=== PATIENT | female | born 1995 | race African-American/Black ===

== ENCOUNTER → 2020-11-15 12:40 | Outpatient (BNVA) | payer OTHER, SELFPAY | PROVIDERS: PCP Internal Medicine; Visit Provider Physician Assistant | DX: E66.01 Morbid (severe) obesity due to excess calories (principal); J45.909 Unspecified asthma, uncomplicated; K21.9 Gastro-esophageal reflux disease without esophagitis | CPT/HCPCS: 99202 ==

== ENCOUNTER → 2020-11-25 10:06 | Outpatient (BNVA) | payer OTHER, SELFPAY | PROVIDERS: PCP Internal Medicine; Visit Provider Physician Assistant ==

== ENCOUNTER 2020-12-04 08:06 | Outpatient (REF) | payer OTHER, SELFPAY ==
--- NOTE | ~2020-12-04 | FL_ITS ---
EXAMINATION: FL XR GI SERIES CLINICAL INFORMATION: Morbid obesity. COMPARISON: None TECHNIQUE: Air contrast upper GI examination. FINDINGS: There is normal elevation of the soft palate while saying candy. There is normal apposition of the focal cords when saying E. Patient swallowed a combination of thin and thick barium after CO2 crystal ingestion. There is no evidence of nasopharyngeal reflux or tracheal aspiration. No Zenker's diverticulum was appreciated. The esophagus appeared unremarkable without stricture, ulceration, or hiatal hernia. No gastroesophageal reflux was identified including with water siphon test. There is normal esophageal motility. The stomach demonstrates normal distensibility without abnormal mass or ulceration. There is no delay in gastric emptying. The duodenal bulb and sweep appeared unremarkable. FLUOROSCOPY TIME: 1.3 minutes. DOSE AREA PRODUCT: 20.597 uGy-m2 (microgray-meter squared). FL/FL upper GI series IMPRESSION: Normal air contrast upper GI examination.
--- NOTE | ~2020-12-04 | US_ITS ---
EXAMINATION: US COMPLETE ABDOMEN WITH LIVER ELASTOGRAPHY CLINICAL INFORMATION: Obesity. COMPARISON: None. TECHNIQUE: Real-time imaging of the abdominal viscera. Noninvasive ultrasound liver fibrosis assessment is performed using Mara ElastPQ point quantification shear wave elastography (pSWE) with a C5-2 MHz transducer. Multiple elastography samples are obtained. FINDINGS: PANCREAS: Normal. The visualized pancreatic head and body are normal in appearance. The remainder of the pancreas is obscured from visualization by the overlying bowel gas. ABDOMINAL AORTA: The proximal, middle, and distal aortic segments are normal in caliber. INFERIOR VENA CAVA: Visualized portions are normal. LIVER: Mild diffuse increased echogenicity. No focal lesion or intrahepatic biliary duct dilatation. The right lobe measures 17.3 cm in length. The left lobe measures 13.4 cm in length. Portal flow is hepatopedal. Shear wave liver elastography median stiffness is 1.26 m/s (reference: normal median stiffness is 1.3 m/s or less). IQR/median stiffness to assess sampling precision is 0.13 (reference: good quality data set is IQR/median stiffness of 0.15 or less). GALLBLADDER: Normal. The gallbladder is physiologically distended without evidence of stones, sludge, polyps, wall thickening or pericholecystic fluid. COMMON BILE DUCT: Normal in caliber measuring 0.12 cm in diameter. RIGHT KIDNEY: Normal. No hydronephrosis. No renal calculi or focal parenchymal lesions. The kidney measures 11.6 cm in maximum dimension. LEFT KIDNEY: Normal. No hydronephrosis. No renal calculi or focal parenchymal lesions. The kidney measures 10.1 cm in maximum dimension. SPLEEN: Normal. The spleen measures 9 cm in maximum dimension. FREE FLUID: None. US/US abdomen comp w elastography IMPRESSION: 1. Mild diffuse increased hepatic echogenicity correlating with mild hepatic steatosis. No focal liver lesion or biliary duct dilatation. 2. Liver elastography: Liver stiffness median value 1.26. This correlates with a high probability of being normal. REFERENCE: Society of Radiologists in Ultrasound Liver Stiffness Thresholds (2019): LIVER STIFFNESS THRESHOLDS: *Liver Stiffness equal or less than 1.3 m/s: High probability of being normal. *Liver Stiffness less than 1.7 m/s: In the absence of other known clinical signs, rules out compensated advanced chronic liver disease. *Liver Stiffness 1.7-2.1 m/s: Suggestive of compensated advanced chronic liver disease but need further test for confirmation. *Liver Stiffness over 2.1 m/s: Rules in compensated advanced chronic liver disease. *Liver Stiffness over 2.4 m/s: Suggestive of clinically significant portal hypertension. QUALITY OF DATA SET: *IQR/Median value equal or less than 0.15 implies a quality data set. *IQR/Median value over 0.15 implies a poor quality data set. SIGNIFICANT CHANGE FROM PRIOR EXAM: Significant change if liver stiffness measurement is 10% or greater from prior exam. OTHER CONSIDERATIONS: The stage of liver fibrosis may be overestimated in the setting of acute hepatitis, liver inflammation, elevated liver function tests, hepatic vascular congestion, obstructive cholestasis, non-fasting state, and infiltrative diseases such as amyloidosis and lymphoma. In some patients with NAFLD, the liver stiffness thresholds for compensated advanced chronic liver disease may be lower. In causes other than viral hepatitis and NAFLD, liver stiffness thresholds are not well established.
--- NOTE | ~2020-12-04 | XR_ITS ---
EXAMINATION: XR CHEST CLINICAL INFORMATION: Morbid obesity COMPARISON: None TECHNIQUE: 2 views of the chest were obtained. FINDINGS: No significant abnormality is noted involving the heart, lungs, mediastinum, bony thorax or soft tissues. XR/XR chest 2V IMPRESSION: No acute disease.
[2020-12-04 10:09] LABS: MANUAL DIFF FLAG NO
[2020-12-04 10:16] LABS: Basophils Percent Auto 0.4 % (0-2); Eosinophils Absolute Auto 0.1 X10*3/uL (0.0-0.4); Eosinophils Percent Auto 1.5 % (0-4); Hematocrit 39.7 % (37-47); Hemoglobin 13.1 g/dl (12.0-16.0); Imm Gran Abs Auto 0.01 X10*3/uL (0.00-0.03); Imm Gran Pct Auto 0.2 % (0.0-0.4); Lymphocytes Percent Auto 38.5 % (20-40); Mean Corpuscular Hemoglobin 26.5 pg (27.0-33.0); Mean Corpuscular Volume 80.2 fL (80-98); Mean Platelet Volume 11.3 fL (9.4-12.3); Monocytes Absolute Auto 0.4 X10*3/uL (0.1-1.2); Monocytes Percent Auto 6.6 % (2-11); Neutrophils Absolute Auto 2.8 X10*3/uL (2.0-8.3); Neutrophils Percent Auto 52.8 % (45-73); Platelet Count 253 X10*3/uL (160-400); Red Blood Count 4.95 X10*6/uL (4.20-5.50); Red Cell Distribution Width 13.9 % (11.0-16.0); White Blood Count 5.3 X10*3/uL (4.8-10.8)
[2020-12-04 10:23] LABS: Estimated Average Glucose 100 mg/dL; Hemoglobin A1c % 5.1 %
[2020-12-04 10:47] LABS: Alanine Aminotransferase 17 U/L (0-31); Albumin Level 4.3 g/dL (3.5-5.0); Alkaline Phosphatase 74 U/L (39-117); Anion Gap 14 (12-20); Aspartate Amino Transferase 15 U/L (5-31); Bilirubin Total 0.5 mg/dL (0.0-1.0); C Reactive Protein 2.27 mg/dL (< or = 0.50); Carbon Dioxide 25 mmol/L (22-29); Chloride 105 mmol/L (96-108); Cholesterol 155 mg/dL; Estimated Glomerular Filt Rate > 60; Glucose Random 97 mg/dL (60-115); HDL Cholesterol 71 mg/dL; LDL Cholesterol Calculated 70 mg/dl; Potassium 3.9 mmol/L (3.3-5.1); Sodium 140 mmol/L (135-145); Total Protein 7.4 g/dL (6.5-8.0); Triglycerides 72 mg/dL
[2020-12-04 10:48] LABS: Blood Urea Nitrogen 17 mg/dL (9-16); Calcium 9.1 mg/dL (8.4-10.2)
[2020-12-04 10:59] LABS: Ferritin 25 ng/mL (10-122); TSH reflex Free T4 1.12 uIU/mL (0.32-4.0); Vitamin D 25-OH Total 8.9 ng/mL (>30)
[2020-12-05 04:48] LABS: Folate 11.3 ng/mL (> or = 4.0); Vitamin B12 424 pg/mL (200-900)
[2020-12-05 06:12] LABS: Insulin Level Total 14.1 uIU/mL
[2020-12-05 11:26] LABS: Calcium (PTHI) 9.3 mg/dL (8.6-10.2); PTHI 69 pg/mL (14-64)
[2020-12-06 07:51] LABS: Zinc 86 mcg/dL (60-130)
[2020-12-07 13:06] LABS: Vitamin B1 10 nmol/L (8-30)
[2020-12-07 18:17] LABS: Vitamin A 43 mcg/dL (38-98)
== END 2020-12-04 08:07 | disposition home or self-care (01) ==
LOC: HO.US 08:06
PROVIDERS: Physician Assistant; PCP Internal Medicine; Visit Provider Surgery
DX: Z01.818 Encounter for other preprocedural examination (principal); E66.01 Morbid (severe) obesity due to excess calories; K21.9 Gastro-esophageal reflux disease without esophagitis
CPT/HCPCS: 36415; 71046; 74240; 76705; 76981; 80053; 80061; 82306; 82607; 82728; 82746; 83036; 83525; 83970; 84425; 84443; 84590; 84630; 85025; 86140

== ENCOUNTER → 2020-12-06 08:04 | Outpatient (BNVA) | payer OTHER, SELFPAY | PROVIDERS: PCP Internal Medicine; Visit Provider Surgery ==

== ENCOUNTER → 2020-12-16 10:01 | Outpatient (BNVA) | payer OTHER, SELFPAY | PROVIDERS: PCP Internal Medicine; Visit Provider Physician Assistant ==

== ENCOUNTER → 2020-12-17 08:10 | Outpatient (BNVA) | payer OTHER, SELFPAY | PROVIDERS: PCP Internal Medicine; Visit Provider Dietitian, Registered | DX: E66.01 Morbid (severe) obesity due to excess calories (principal); Z68.42 Body mass index [BMI] 45.0-49.9, adult | CPT/HCPCS: 97802 ==

== ENCOUNTER 2020-12-30 10:08 | Outpatient (REF) | payer OTHER, SELFPAY ==
[2020-12-31 15:17] LABS: H Pylori Breath Test NOT DETECTED (NOT DETECTED)
== END 2020-12-30 10:09 | disposition home or self-care (01) ==
LOC: HO.LNP 10:08
PROVIDERS: PCP Internal Medicine; Visit Provider Surgery
DX: Z11.0 Encounter for screening for intestinal infectious diseases (principal)
CPT/HCPCS: 83013; 99211

== ENCOUNTER → 2021-01-09 08:08 | Outpatient (BNVA) | payer OTHER, SELFPAY | PROVIDERS: PCP Internal Medicine; Visit Provider Dietitian, Registered | DX: E66.01 Morbid (severe) obesity due to excess calories (principal) | CPT/HCPCS: 97803 ==

== ENCOUNTER → 2021-01-23 10:14 | Outpatient (BNVA) | payer OTHER, SELFPAY | PROVIDERS: PCP Internal Medicine; Visit Provider Physician Assistant ==

== ENCOUNTER → 2021-01-28 08:59 | Outpatient (BNVA) | payer OTHER, SELFPAY | PROVIDERS: PCP Internal Medicine; Referring Provider Internal Medicine; Visit Provider Physician Assistant ==

== ENCOUNTER 2021-07-15 16:20 | Emergency (ER) | payer OTHER, SELFPAY ==
--- NOTE | ~2021-07-15 | CT_ITS ---
EXAMINATION: CT HEAD WITHOUT CONTRAST CLINICAL INFORMATION: sharp headaches, difficulty walking COMPARISON: None TECHNIQUE: Contiguous axial imaging was performed from the skull base to vertex without intravenous administration of contrast. This CT examination was performed using dose optimization techniques as appropriate, variously including the following: *Automated exposure control *Adjustment of mA and/or kV according to patient size (this includes techniques or standardized protocols for targeted exams where dose is matched to indication/reason for exam; i.e. extremities or head) *Use of iterative reconstruction technique DLP: 844 mGy-cm FINDINGS: There is no evidence of acute intracranial hemorrhage or territorial infarction. No abnormal mass effect or midline shift is seen. Narayanan to white matter differentiation is well preserved. No extra-axial fluid collections are identified. The ventricles are normal in size. There is no abnormal attenuation within the brain parenchyma. The osseous structures and soft tissues are normal. Mild mucosal thickening within the right and left maxillary sinuses. Mastoid air cells are clear. CT/CT head/brain wo con IMPRESSION: No acute intracranial pathology.
[2021-07-15 16:43] VITALS: BP 148/92; PULSE 83; RESP 18; TEMP 36.7; O2SAT 98; BMI 48.8
--- NOTE | 2021-07-15 17:47 | ED_ITS ---
HPI - Headache General Chief Complaint: Headache Stated Complaint: sharp head pain Time Seen by Provider: 07/15/21 17:19 Source: patient Mode of arrival: ambulatory Limitations: no limitations History of Present Illness HPI Narrative: 26 y/o female with history of asthma, GERD, depression, seasonal allergies who presents to the ER with 5 days of intermittent, sharp headaches. She denies a history of migranes and she has never had headaches like this in the past. She states they come and go and are mostly frontal. They are sharp and debilitating when they happen. The pain makes it hard for her to walk and she g ets nauseous. She reports photosensitivity when the headache is present. No neck pain or fevers. No trauma. She also reports her asthma has been acting up along with bilateral ear pains. No hearing loss, dizziness, lightheadedness, nasal congestion. MD elicited complaint: headache Onset (ago): day(s) (5) Onset description: suddenly Location: frontal Severity: severe Quality & Timing: throbbing Exacerbating factors: none Relieving factors: other (Excedrin migraine & Tylenol) Associated symptoms: nausea, photophobia and sensitivity to sound Treatments prior to arrival: none Related Data Home Medications Medication Instructions Recorded Confirmed albuterol sulfate 90 mcg/actuation 1 inh INHALATION Q4-6H PRN 11/15/20 12/06/20 breath activated powder inhaler,sensor acetaminophen 325 mg tablet mg PO 12/06/20 12/06/20 Previous Rx's Medication Instructions Recorded cholecalciferol (vitamin D3) 125 125 mcg PO DAILY #30 cap 12/06/20 mcg (5,000 unit) capsule amoxicillin 875 mg-potassium 1 tab PO BID #14 tab 07/15/21 clavulanate 125 mg tablet (Augmentin) mefltuxvvz-dwzdhmobvytoy-ibdlctal 1 cap PO Q6H PRN #10 cap 07/15/21 50 mg-300 mg-40 mg capsule (Fioricet) Allergies Allergy/AdvReac Type Severity Reaction Status Date / Time Seasonal Allergies Allergy Severe Anaphylaxis Verified 12/06/20 13:31 Review of Systems Review of Systems: Constitutional: No Fever, No Chills ENT/Mouth: No sore throat, No Rhinorrhea, No Swallowing Difficulty, +Ear pain Eyes: No Eye Pain, No Swelling, No Redness, No vision changes Cardiovascular: No Chest Pain, No SOB, No Orthopnea, No Edema Respiratory: No Cough, No Sputum, No Wheezing, No dyspnea Gastrointestinal: + Nausea, No Vomiting, No Diarrhea, No abdominal Pain Genitourinary: No Dysuria, No Urinary Frequency, No Hematuria Musculoskeletal: No joint pain, No Myalgias Skin: No Skin Lesions, No rash Neuro: No Weakness, No Numbness, No Dizziness, + Headache Heme/Lymph: No Bruising, No Lymphadenopathy PMFSH Past Medical History Medical History (Updated 07/15/21 @ 18:17 by MELVI Wise) Back pain Surgical History (Updated 11/15/20 @ 12:58 by Joselito Aldana [facility]) Hx of section Family History Family History Mother No problems noted. Father No problems noted. Sister No problems noted. Sister No problems noted. Brother No problems noted. Brother No problems noted. Brother No problems noted. Brother No problems noted. Son Heart murmur Daughter No problems noted. Daughter No problems noted. Social History Social History (Updated 12/06/20 @ 08:25 by Joselito Aldana [facility]) Alcohol intake: current Alcohol intake frequency: a few times a week Advance Directives: No Advance Directives Information Provided: No Physical Exam Vital Signs: Vital Signs: Last Vital Signs Temp 98.1 F 07/15/21 16:43 Pulse 83 07/15/21 16:43 Resp 18 07/15/21 16:43 BP 148/92 H 07/15/21 16:43 Pulse Ox 98 07/15/21 16:43 Body Mass Index 48.8 Appearance: Alert. Oriented X3. No acute distress. Eyes: Pupils equal, round and reactive to light. ENT: Pharynx normal. Effusions present behind bilateral TM's, no erythema or bulging. Neck: Normal inspection. Neck supple. CVS: Normal heart rate and rhythm. Pulses normal. Respiratory: No respiratory distress. Breath sounds normal. Abdomen: Soft and nontender. +BS x4 Skin: Skin warm and dry. Normal skin color. Normal skin turgor. No rashes. Extremities: No lower extremity edema. Neuro: Oriented X 3. No motor deficit. No sensory deficit. Course Course Course Narrative: 26 y/o female presenting with intermittent frontal headaches x5 days. Exam with fluid behind bilateral TMs without erythema or bulging. VS are normal. Given her report of difficulty walking and severe pain without a history, will get CT head. Will medicate w/ Fioricet and reassess. Reevaluation(s) Reevaluation #1: Headache improved. COVID negative. CT head normal. She is feeling better. Will plan to d/c with Fioricet and course of empiric abx. She is stable for d/c home and outpatient follow up. MDM - Headache Lab Data Labs: Lab Results 07/15/21 07/15/21 Range/Units 17:50 17:50 Urine Test NEGATIVE (NEGATIVE) COVID-19 (ANNA) Negative (Negative) COVID-19 Clin Com See Note Discharge Plan Discharge Clinical Impression: Headache Patient Disposition: Home, Self-Care Instructions: Acute Headache (ED) Additional Instructions: Your COVID test was negative. Your head CT was normal. Take the prescribed medication as needed for headache. You can also take ibuprofen 600-800 mg every 6-8 hours. Take the prescribed antibiotic as directed. Follow up with your doctor in 1 week. If you develop new or worsening symptoms call 911 or come back to the ER for further evaluation. Prescriptions: New frmwlaqtsp-yifazxgbtdncl-tkcr [Fioricet] 50-300-40 mg capsule 1 cap PO Q6H PRN (Reason: pain) Qty: 10 RF: 0 amoxicillin-pot clavulanate [Augmentin] 875-125 mg tablet 1 tab PO BID Qty: 14 RF: 0 No Action acetaminophen 325 mg tablet PO RF: 0 cholecalciferol (vitamin D3) 125 mcg (5,000 unit) capsule 125 mcg PO DAILY Qty: 30 RF: 2 albuterol sulfate 90 mcg/actuation aero powdr breath act w/sensor 1 inh inhalation Q4-6H PRNRF: 0 Stand Alone Forms: Work/School Release
[2021-07-15] MEDS: Butalb/Acetamin/Caff 50/325/40 TABLET 1 TAB PO (17:58)
[2021-07-15 18:06] LABS: UPreg QC Valid YES; Urine Pregnancy NEGATIVE (NEGATIVE)
[2021-07-15 18:17] LABS: COVID-19 Test Negative (Negative); IDNOW Serial# 9DD0AD1C
== END 2021-07-15 19:22 | disposition home or self-care (01) ==
PROVIDERS: Physician Assistant; Emergency Provider Emergency Medicine
DX: R51.9 Headache, unspecified (principal); Z20.822 Contact with and (suspected) exposure to COVID-19; Z79.899 Other long term (current) drug therapy
CPT/HCPCS: 36415; 70450; 81025; 87635; 99284

== ENCOUNTER 2021-08-06 17:20 | Emergency (ER) | payer OTHER, SELFPAY ==
[2021-08-06 17:56] VITALS: BP 153/88; PULSE 82; RESP 17; TEMP 36.7; O2SAT 97; BMI 46.8
--- NOTE | 2021-08-06 21:00 | ED.SKABFB ---
HPI - Skin/Abscess/Foreign Bdy General Chief complaint: Skin/Abscess/Foreign Body Stated complaint: body rash Time Seen by Provider: 08/06/21 20:17 Source: patient Mode of arrival: ambulatory Limitations: no limitations History of Present Illness HPI narrative: 26 yo female here with itching rash to buttocks with waking. No pain or burning. Used a triamcinolone topical cream she had left over from previous contact dermatitis with improvement. She has had intermittent idopathic contact dermatitis seen by a surplus property disposal agent/landscape photographer. she also switched her laundry detergent recently and thinks may be contributing to her symptoms. She also used a new pad when she had her period last week so this may also be causing her rash. No recent antibiotic patient is requesting STD testing and she has a new partner. She denies any vaginal discharge, urinary symptoms, vaginal lesions or bumps. Related Data Home Medications Medication Instructions Recorded Confirmed albuterol sulfate 90 mcg/actuation 1 inh INHALATION Q4-6H PRN 11/15/20 12/06/20 breath activated powder inhaler,sensor acetaminophen 325 mg tablet mg PO 12/06/20 12/06/20 Previous Rx's Medication Instructions Recorded cholecalciferol (vitamin D3) 125 125 mcg PO DAILY #30 cap 12/06/20 mcg (5,000 unit) capsule amoxicillin 875 mg-potassium 1 tab PO BID #14 tab 07/15/21 clavulanate 125 mg tablet (Augmentin) wwrcktjgru-hdqehooehyjpz-ivsjbdjx 1 cap PO Q6H PRN #10 cap 07/15/21 50 mg-300 mg-40 mg capsule (Fioricet) triamcinolone acetonide 0.025 % 1 appl TOPICAL BID PRN #15 g 08/06/21 topical cream Allergies Allergy/AdvReac Type Severity Reaction Status Date / Time Seasonal Allergies Allergy Severe Anaphylaxis Verified 08/06/21 17:56 Review of Systems Review of Systems: Yes all other systems are reviewed and are negative Constitutional: Constitutional: Reports no additional constitutional complaints, Denies body ache(s), Denies chills, Denies fever(s), Denies headache(s) and Denies weakness Eyes: Eyes: Reports no additional eye complaints and Denies change in vision ENT: Reports system reviewed and no additional complaints, except as documented, Denies dizziness, Denies headache(s), Denies nasal congestion, Denies nasal discharge and Denies neck pain Cardiovascular: Cardiovascular: Reports no additional cardiovascular complaints, Denies chest pain, Denies leg edema and Denies dyspnea Respiratory: Respiratory: Reports no additional respiratory complaints, Denies cough and Denies dyspnea Gastrointestinal: Gastrointestinal: Reports no additional gastrointestinal complaints, Denies abdominal pain, Denies diarrhea, Denies nausea and Denies vomiting Genitourinary: Genitourinary: Reports no additional female genitourinary complaints and Denies urinary incontinence Musculoskeletal: Musculoskeletal: Reports no additional musculoskeletal complaints, Denies back pain, Denies arthralgias, Denies joint swelling, Denies neck pain, Denies numbness and Denies tingling Integumentary/Breasts: Skin/Breast: Reports system reviewed and no additional complaints, except as docu and Reports rash Neurologic: Reports system reviewed and no additional complaints, except as documented, Denies Abnormal speech present, Denies dizziness, Denies headache(s), Denies numbness, Denies tingling and Denies weakness PMFSH Past Medical History Attestation statement: The following information was validated with the patient. Source: old records reviewed and nursing notes reviewed Medical History Back pain Surgical History Hx of section Family History Family History Mother No problems noted. Father No problems noted. Sister No problems noted. Sister No problems noted. Brother No problems noted. Brother No problems noted. Brother No problems noted. Brother No problems noted. Son Heart murmur Daughter No problems noted. Daughter No problems noted. Social History Social History Alcohol intake: current Alcohol intake frequency: a few times a week Advance Directives: No Advance Directives Information Provided: Yes Physical Exam Vital Signs: Vital Signs: Last Vital Signs Temp 98.0 F 08/06/21 17:56 Pulse 82 08/06/21 17:56 Resp 17 08/06/21 17:56 BP 153/88 H 08/06/21 17:56 Pulse Ox 97 08/06/21 17:56 BMI result Body Mass Index 46.8 Const: General: cooperative, healthy appearing, comfortable and no acute distress Orientation/consciousness: patient oriented x3 Limitations: no limitations HENMT: Head: Yes normal to inspection Ears: hearing grossly normal bilaterally General nose exam: Normal external nose present Face and sinus: Yes normal facial exam Mouth: Normal oral and palatal mucosa present Throat: Yes posterior oropharynx normal Eyes: General: appearance normal, both eyes and all related structures Pupils: Equal, round and reactive pupils present Neck: Neck: Yes normal visual inspection Chest: Chest palpation & inspection: normal inspection of the chest Resp: Effort & Inspection: normal respiratory effort Auscultation: clear to auscultation bilaterally Cardio: Rate: regular rate Rhythm: regular rhythm Peripheral pulses: Peripheral pulses 2+ throughout GI: Inspection: Yes normal to inspection Palpation (GI): Soft to palpation and nontender Auscultation: normal bowel sounds Back/Spine/Pelvis: Thoracic/Lumbar Spine: thoracic and lumbar spine normal to inspection Skin: Other: the bilateral buttocks there is some erythema and several urticarial lesions noted. There is no rash noted over the perineum or over the vaginal area. For also several lesions on the anterior bilateral thighs. They are blanchable General skin exam: no rashes or lesions noted Neuro: General: patient oriented x3, no focal motor deficits and normal sensation to monofilament Cranial nerves: Yes Equal, round and reactive pupils present Cognition (Neuro): normal cognition Speech: No Abnormal speech present Gait exam (Neuro): Normal gait present Motor exam (neuro): 5/5 motor strength present throughout Extrem: General: Yes normal to inspection Course Course Course Narrative: Exam is consistent with contact dermatitis in the buttocks. There is also several lesions over the anterior thighs. This may be from patient changing her laundry detergent or using new feminine lb. There is no airway involvement or angioedema. Will prescribe topical steroids which the patient can use at home. Also requesting STD testing and she has a new sexual partner. She has no symptoms. We sent testing for gonorrhea, chlamydia, BV panel. Patient will defer treatment until her results are back. Reviewed worrisome signs and symptoms of when to return him. Comfortable discharge home. MDM - Skin/Abscess/Foreign Bdy Medical Records Attestation: I reviewed the patient's medical records. Lab Data Attestation: I reviewed the patient's lab results. Discharge Plan Discharge Clinical Impression: Dermatitis Patient Disposition: Home, Self-Care Instructions: Dermatitis (ED) Additional Instructions: We will call you tomorrow if your test results are positive switch to tide Free and Clear laundry detergent only use unscented pads Prescriptions: New triamcinolone acetonide 0.025 % cream 1 appl topical BID PRN (Reason: itching) Qty: 15 RF: 0 No Action verfrghqtb-darbwiuofnngq-ewht [Fioricet] 50-300-40 mg capsule 1 cap PO Q6H PRN (Reason: pain) Qty: 10 RF: 0 amoxicillin-pot clavulanate [Augmentin] 875-125 mg tablet 1 tab PO BID Qty: 14 RF: 0 acetaminophen 325 mg tablet PO RF: 0 cholecalciferol (vitamin D3) 125 mcg (5,000 unit) capsule 125 mcg PO DAILY Qty: 30 RF: 2 albuterol sulfate 90 mcg/actuation aero powdr breath act w/sensor 1 inh inhalation Q4-6H PRNRF: 0 Referrals: Jesus Bedolla MD [Primary Care Provider] - 2 days
[2021-08-07 06:38] LABS: CT PCR NOT DETECTED (Not Detect.); NG PCR NOT DETECTED (Not Detect.)
[2021-08-07 11:48] LABS: BV Int Neg Control Negative (Negative); BV Int Pos Control Positive (Positive)
== END 2021-08-06 21:43 | disposition home or self-care (01) ==
PROVIDERS: Nurse Practitioner Family; Emergency Provider Internal Medicine; PCP Internal Medicine
DX: L30.9 Dermatitis, unspecified (principal)
CPT/HCPCS: 87480; 87491; 87510; 87591; 87660; 99283; 99284

== ENCOUNTER 2025-07-30 00:57 | Emergency (ER) | payer OTHER, SELFPAY ==
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
[2025-07-30 01:08] VITALS: BP 125/53; BP 140/80; PULSE 69; PULSE 95; RESP 16; TEMP 37; O2SAT 97; O2SAT 99; BMI 50.0
[2025-07-30 01:20] VITALS: BP 116/63; PULSE 65; RESP 17
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
--- OUTSIDE RECORDS SUMMARY | 2025-07-30 01:51 | XMS_ITS | Clinical Summary ---
Author Organization [facility] Address [address] [place] [address] Phone Care Team Providers Care Ceo Ziff Davis Name Role Phone Carina Collins MD Primary Care Prov ider Allergies Active Allergy Reactions Criticality Noted Date Comments Pollen Extracts 12/07/2019 Medications albuterol HFA (PROAIR HFA ; PROVENTIL HFA ; VENTOLIN HFA) 90 mcg/actuation inhaler Inhale 2 Puffs into the lungs every 4 hours as needed for Cough or Wheezing for up to 30 days. 4 Active ergocalciferol (VITAMIN D-2) 1,250 mcg (50,000 unit) capsule Take 1 Capsule by mouth once a week. For 14 weeks 4 Active fluconazole (DIFLUCAN) 150 mg tablet Take 1tab po and repeat dose in 3days 4 Active fluticasone propion-salmeter oL (ADVAIR DISKUS) 500-50 mcg/dose diskus inhaler Inhale 1 Puff into the lungs 2 times daily for 30 days. 4 Active hydrOXYzine HCL (ATARAX) 25 mg tablet Take 1 Tablet by mouth 3 times daily as needed for Anxiety for up to 360 days. 4 Active ibuprofen (ADVIL,MOTRIN) 800 mg tablet TAKE 1 TABLET BY MOUTH EVERY 8 HOURS NEEDED FOR PAIN FOR UP TO 30 DAYS. 3 Active umeclidinium (Incruse Ellipta) 62.5 mcg/actuation inhalation Inhale 1 Puff into the lungs daily for 30 days. 4 Active fluticasone propion-salmeter oL (Wixela Inhub) 500-50 mcg/dose diskus inhaler Inhale 1 puff by mouth 2 (two) times a day. Rinse mouth with water after use to reduce aftertaste and incidence of candidiasis. Do not swallow. 1 each 12 5 10/27/19 26 Active albuterol HFA (PROAIR HFA ; PROVENTIL HFA ; VENTOLIN HFA) 90 mcg/actuation inhalerIndicatio ns:Moderate persistent asthma, unspecified whether complicated Inhale 2 puffs by mouth every 6 (six) hours if needed for wheezing. 6.7 g 3 5 10/27/19 26 Active Ventolin HFA 90 mcg/actuation inhalerIndicatio ns:Acute upper respiratory infection, unspecified,Cont act with and (suspected) exposure to unspecified communicable disease INHALE 2 PUFFS INTO THE LUNGS EVERY 4 HOURS NEEDED FOR COUGH OR WHEEZING FOR UP TO 30 DAYS. 18 each 2 5 Active etonogestreL-eth inyl estradioL (NUVARING) 0.12-0.015 mg/24 hr vaginal ring Insert 1 each into the vagina every 28 (twenty-eight) days. Insert vaginally and leave in place for 3 consecutive weeks, then remove for 1 week. 3 each 4 5 02/01/20 26 Active phentermine 15 mg capsuleIndicatio ns:Class 3 severe obesity due to excess calories with body mass index (BMI) of 45.0 to 49.9 in adult, unspecified whether serious comorbidity present ([facility] V24, [facility] V28) Take 1 capsule (15 mg total) by mouth 1 (one) time each day before breakfast. 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 She does meet this criteria except for the last test which was Affirm only. Explained that usual suppressive therapy for someone with recurrent BV would be twice weekly Metrogel x 4-6 months, the gentlest formulation, which affects normal luis the least. However, given she has no signs of BV today and is feeling a lot better after treatment of her gonorrhea, change in washing habits, and normalization of pH, I recommend we hold off for now and if it recurs, she should be seen with testing including at least 3/4 Amsel's criteria of homogeneous vaginal discharge, pH >4.5, + whiff test, and presence of >20% clue cells per HPF on microscopy. Microscopy can be done back office of in the lab with WET SMEAR, not Affirm. Positive Affirm is suggestive, but not diagnostic for BV and results should be interpreted in conjunction with the above criteria, rather than in place of them. Use of office microscopy may help to determine whether she just has colonization with gardnerella versus true BV. I would also recommend MELANIA prior to initiating any sort of suppressive therapy. In the meantime, she should continue washing with warm water only, avoid thongs. She was also counseled to use condoms every time to avoid pH changes that make BV more likely as well as with partners who are uncircumcised, as this also increases risk. She voiced understanding and agreed. Elevated glucose tolerance test 07/12/2019 Overview (07/17/2024): Early one hour: 141 Normal 3 hour 08/03/2019 Normal 3hr: 11/23/19 Allergic rhinitis 05/25/2019 Severe obesity ([facility] V24, [facility] V28) 2018 Immunizations Immunization Administration Dates Next Due DTaP (Infanrix) 6wks to less than 7yo ,01/18/1996,1994,09/29,1994 BNuT-IAB-EHV (Pentacel) 2mo to less than 5yo 07/19/1995,1994,1994,07/08 Diptheria & Tetanus, 6wks to less than 7yo 05/18/2005 HPV 9-valent (Gardisil) 9yo to less than 46yo 07/14/2016 HPV, Quadrivalent 09/24/2010,06/23/2010,04/22/20 10 Hepatitis B Pediatric (Enger ix B; Recombivax HB) to less than 20 yo 03/30/1995,1994,1994 Influenza Quadravalent, MDCK , 0.5ml, preservative free (Flucelvax) 6mo and older 07/13/2023,09/08/2022 Influenza Quadravalent, MDCK , 0.5ml, with preservative (Flucelvax) 6mo and older 07/29/2018 Influenza trivalent, 0.5mL, preservative free (Fluarix; FluLaval; Fluzone) ages 6mo and older (Afluria) 3 years and older 08/10/2012 MMR, measles mumps and rubel la Live (Priorix; M-M-R II) 12mo and older 1998,01/18/1996,1995 Meningococcal MCV4P 04/22/2010 OPV 07/08/2004, 8,01/18/1996,09/09 PPD Test 07/08/2016 Tdap Tetanus diptheria acell ular pertussis (Boostrix; Adacel) 7yo and older 12/21/2019,11/28/2018,07/14/2016,02/01 Varicella live (Varivax) 12m o and older 04/22/2010,06/28/1997 Surgical History Surgery Date Site/Laterality Comments WISDOM TOOTH EXTRACTION PROCEDURE: HISTORICAL WISDOM TEETH EXTRACTION SECTION 02/09/2020 PROCEDURE: HISTORICAL DELIVERY; COMMENT: Code white for NRFHT remote from delivery Medical History Medical History Date Comments Asthma DX:Asthma Depression DX:Depression Gestational diabetes DX:Gestatio nal diabetes Sickle cell trait ([facility] V24) DX:Sickle cell trait ([facility]) Homelessness 10/07/2020 DX:Homelessness; COMMENT: Pt on Aug 2020 Homeless List. Family History Medical History Relation Name Comments Diabetes Father Breast cancer Neg Hx Colon cancer Neg Hx Ovarian cancer Neg Hx Pancreatic cancer Neg Hx Prostate cancer Neg Hx Uterine cancer Neg Hx Relation Name Status Comments Father Alive Maternal Grandfather Alive Mother Alive Paternal Grandfather Alive Paternal Grandmother Alive Sister 1 Alive Sister 2 Alive Social History Tobacco Use Types Packs/Day Years Used Date Smoking Tobacco: Former Cigarettes Smokeless Tobacco: Never Tobacco Cessation:Counseling Given: Not Answered Alcohol Use Standard Drinks/Week Comments Not Currently 0 (1 standard drink = 0.6 oz pur e alcohol) Comments No Sex and Gender Information Value Date Recorded Sex Assigned at Female 03/08/2025 9:37 AM EDT Legal Sex Female 11:55 AM EST Gender Identity Female 03/08/2025 9:37 AM EDT Sexual Orientation Straight 03/08/2025 9: 37 AM EDT Obstetrics History * This document contains information received from the source organization and may not represent a complete record from that organization. Para Term AB IAB SAB Ectopic Multiple Livin g Live Births 5 3 3 3 3 Date Outcome GA Total Labor Labor/2nd/3rd Weight Sex Type Anes PTL Elle A1 A5 Name Clin 2011 Term 3118 g (110 oz) F Vag-S pont Livin g Complications:None 2014 2015 Term 3147 g (111 oz) F Vag-S pont Livin g Complications:None,Gestation al diabetes mellitus (GDM) 2019 Term 40w 1d 3939 g (138.9 oz) M CS-LT ranv Epidur al N Livin g 8 9 Elizabeth kim MD Delivery Location:[facility] Comments:transferred t o [facility] for BMI 54. Code white for NRFHT remote from delivery 2021 Last Filed Vital Signs Vital Sign Reading Time Taken Comments Blood Pressure 107/67 03/13/2025 10:17 AM EDT Pulse 92 03/13/2025 10:17 AM EDT Temperature 36.6 C (97.8 F) 03/13/2025 10:17 AM EDT Respiratory Rate 16 10/27/2024 9:01 AM EST Oxygen Saturation 100% 10/27/2024 9:01 AM EST Inhaled Oxygen Concentration - - Weight 108 kg (239 lb) 03/13/2025 10:17 AM EDT Height 149.9 cm (4' 11 ) 03/13/2025 10:17 AM EDT Body Mass Index 48.27 03/13/2025 10:17 AM EDT Plan of Treatment Health Maintenance Due Date Last Done Comments Pneumococcal Vaccine: Pediatrics (0 to 5 Years) and At-Risk Patients (6 to 49 Years) (1 of 2 - PCV) 2013 Social Influencers of Health Screening 08/07/2022 Depression Screening 08/30/2024 12/09/2023 COVID-19 Vaccine (2 - season) 2025 10/24/2021 Influenza Vaccine (#1) 2025 , 07/13/2023, 09/08/2022, Additional history exists Cholesterol Screening (Lipid Panel) 12/08/2028 12/09/2023 DTaP,Tdap,and Td Vaccines (13 - Td or Tdap) 12/20/2029 12/21/2019, 11/28/2018, 07/14/2016, Additional history exists Cervical Cancer Screening: HPV 01/31/2030 01/31/2025, 10/06/2021 RSV Immunization Adult Patients (1 - 1-dose 75+ series) 2069 Hepatitis B Vaccines Completed 03/30/1995, 1994, 1994 HIB Vaccines Completed 07/19/1995, 07/01, 1994, Additional history exists MMR Vaccines Completed 1998, 12/29, 1995 IPV Vaccines Completed 07/08/2004, 08/1997, 01/18/1996, Additional history exists Meningococcal ACWY Vaccine Aged Out 04/22/2010 N o longer eligible based on patient's age to complete this topic Varicella Vaccines Completed 04/22/2010, 06/28/1997 HPV Vaccines Completed 07/14/2016, 10/28, 09/24/2010, Additional history exists HIV Screening Completed 12/22/2023 Hepatitis C Screening Completed 12/22/2023 Hepatitis A Vaccines Aged Out No long er eligible based on patient's age to complete this topic Meningococcal B Vaccine Aged Out No l onger eligible based on patient's age to complete this topic RSV Immunization Patients Under 20 months Aged Out No longer eligible based on patient's age to complete this topic Procedures Procedure Name Priority Date/Time Associated Diagnosis Comments HPV WITH REFLEX GENOTYPE Routine 01/31/2025 1:32 PM EDT Women's annual routine gynecological examination HEPATITIS C SCREENING Routine 12/22/2023 HIV SCREENING Routine 12/22/2023 DEPRESSION SCREENING Routine 12/09/2023 LIPID PANEL Routine 12/09/2023 from Last 3 Months or Most Recently Relevant to Health Maintenance Results * HPV with reflex genotype (01/31/2025 1:32 PM EDT) [facility] HPV Negative Negative LAB MICROBIOLOGY METHOD 02/01/2025 2:07 PM EDT [facility] [place] Cervix uteri structure / Unknown 01/31/2025 1:32 PM EDT 02/01/2025 7:27 AM EDT Amparo Cowan CNM LAB MOLECULAR DIAGNOSTICS O RDERABLES Final Result [facility] [address] [place] [address], * HIV Screening (12/22/2023) [facility] HIV Screening Abstracted Historical Provider HEALTH MAINTENANCE Final Result * Hepatitis C Screening (12/22/2023) Pathologist Count includes the [facility] Hepatitis C Screening Abstracted Historical Provider HEALTH MAINTENANCE Final Result * Depression Screening (12/09/2023) Pathologist Count includes the [facility] Depression Screening Abstracted Historical Provider HEALTH MAINTENANCE Final Result * Lipid panel (12/09/2023) LDL/HDL Ratio 2 0 - 4 Triglycerides 75 0 - 150 mg/dL Cholesterol 165 0 - 200 mg/dL HDL 85 >=40 mg/dL LDL Cholesterol 65 0 - 100 mg/dL Blood Venous blood specimen / Unknown us Historical Provider LAB BLOOD ORDERABLES Rose l Result from Last 3 Months or Most Recently Relevant to Health Maintenance Insurance [employer] [place] [address] Care Teams Ceo Ziff Davis Relationship Specialty Start Date End Date Carina Collins MD [address] [place] [id number] PCP - General Internal Medicine 08/16/24
[2025-07-30 01:57] LABS: MANUAL DIFF FLAG NO
[2025-07-30 02:06] LABS: Hematocrit 36.1 % (37.0-47.0); Hemoglobin 12.6 g/dl (12.0-16.0); Imm Gran Abs Auto 0.02 X10*3/uL (0.00-0.03); Imm Gran Pct Auto 0.3 % (0.0-0.4); Lymphocytes Absolute Auto 1.8 X10*3/uL (1.2-4.9); Mean Corpuscular HGB Conc 34.9 g/dl (31.0-35.0); Mean Corpuscular Hemoglobin 27.5 pg (27.0-33.0); Mean Corpuscular Volume 78.8 fL (80.0-98.0); NRBC Abs Auto 0.000 X10*3/uL (0.0-0.012); NRBC Pct Auto 0.0 /100WBC (0.0-0.2); Platelet Count 244 X10*3/uL (160-400); Red Blood Count 4.58 X10*6/uL (4.20-5.50); White Blood Count 6.5 X10*3/uL (4.8-10.8)
[2025-07-30 02:23] LABS: Anion Gap 13 (12-20); Blood Urea Nitrogen 16 mg/dL (9-16); Calcium 9.1 mg/dL (8.4-10.2); Carbon Dioxide 24 mmol/L (22-29); Chloride 109 mmol/L (96-108); Creatinine Clr Calc Pharmacy 112.5; Estimated Glomerular Filt Rate > 60; Potassium 3.5 mmol/L (3.3-5.1); Sodium 142 mmol/L (135-145)
[2025-07-30 04:33] VITALS: BP 113/76; PULSE 60; RESP 16; TEMP 37; O2SAT 99
== END 2025-07-30 04:34 | disposition home or self-care (01) ==
PROVIDERS: Emergency Medicine Emergency Medical Services; Emergency Provider Emergency Medicine; PCP Internal Medicine
DX: S01.81XA Laceration without foreign body of other part of head, initial encounter (principal); W22.8XXA Striking against or struck by other objects, initial encounter; Y93.9 Activity, unspecified; Y92.89 Other specified places as the place of occurrence of the external cause; Y99.0 Civilian activity done for income or pay
CPT/HCPCS: 12013; 36415; 70450; 72125; 80048; 80307; 84702; 85025; 99284

== ENCOUNTER → 2025-07-30 02:34 | Outpatient (BNV) | payer OTHER, SELFPAY | PROVIDERS: Emergency Provider Emergency Medicine; PCP Internal Medicine; Visit Provider Radiology Diagnostic Radiology | DX: S19.9XXA Unspecified injury of neck, initial encounter (principal); M40.202 Unspecified kyphosis, cervical region; Y92.89 Other specified places as the place of occurrence of the external cause; Y99.0 Civilian activity done for income or pay; S00.03XA Contusion of scalp, initial encounter; Y09 Assault by unspecified means | CPT/HCPCS: 70450; 72125 ==